=== PATIENT | male | born 1960 | race African-American/Black ===

== ENCOUNTER 2019-12-14 14:39 | Emergency (ER) | payer OTHER, MEDICAID ==
[~2019-12-14] VITALS: Ht 170.2 cm; Wt 59.0 kg
[~2019-12-14 14:39] MED LIST: LOSA50TA57 PO
[2019-12-14 14:49] VITALS: BP 117/66
--- NOTE | 2019-12-14 15:31 | NUR ---
59 YR MALE W CEREBRAL PALSY BIB SISTER FROM HOME C/O GENERALIZED WEAKNESS, DECREASED APPETITE, FEVER, AND DYSURIA SINCE SATURDAY. TEMP AT BEDSIDE 98.4 PMH- HYDROCEPHALUS, CEREBAL PALSY, DM
[2019-12-14 15:56] LABS: BASOPHILS % (AUTO) 0.4 % (0.0-2.0); EOSINOPHILS % (AUTO) 0.2 % (0.0-4.0); HEMATOCRIT 41.2 % (36-52); HEMOGLOBIN 13.3 g/dL (12.0-18.0); LYMPHOCYTES # (AUTO) 0.7 K/uL (2.0-11.5); LYMPHOCYTES % (AUTO) 5.1 % (20.5-51.1); MEAN CORPUSCULAR HEMOGLOBIN 27 pg (27-31); MEAN CORPUSCULAR HGB CONC 32 g/dL (33-37); MEAN CORPUSCULAR VOLUME 82.2 fL (80-94); MONOCYTES # (AUTO) 1.3 K/uL (0.8-1.0); MONOCYTES % (AUTO) 10.4 % (1.7-9.3); NEUTROPHILS # (AUTO) 10.8 K/uL (1.8-7.7); NEUTROPHILS % (AUTO) 83.9 % (42.2-75.2); PLATELET COUNT (AUTO) 358 K/uL (140-450); RED BLOOD CELL COUNT(AUTO) 5.01 MIL/uL (4.20-6.10); WHITE BLOOD COUNT (AUTO) 12.9 K/uL (4.8-10.8)
[2019-12-14 16:14] LABS: ANION GAP 12.5 (8-16); CARBON DIOXIDE 29.7 mmol/L (21-32); CREATININE 1.2 mg/dL (0.6-1.3); POTASSIUM 3.2 mmol/L (3.5-5.1)
--- NOTE | 2019-12-14 17:10 | NUR ---
# 14 FR Urinary catheter inserted utilizing sterile technique. Immediate return of CLOUDY YELLOW] 80ML urine noted. Urine sample collected and sent to lab. Pt tolerated procedure WELL.
--- NOTE | 2019-12-14 17:12 | NUR ---
UA SENT TO LAB
[2019-12-14 17:29] LABS: APPEARANCE,URINE CLOUDY (CLEAR); BILIRUBIN,URINE NEGATIVE (NEGATIVE); BLOOD, URINE 2+ (NEGATIVE); COLOR,URINE YELLOW (YELLOW); LEUKOCYTE ESTERASE ,URINE 1+ (NEGATIVE); NITRITE, URINE POSITIVE (NEGATIVE); PH,URINE 7.5 (5.0-9.0); UGLUCOSE NEGATIVE (NEGATIVE)
--- NOTE | 2019-12-14 17:33 | NUR ---
Patient discharged with v/s stable. Written and verbal after care instructions given and explained. Patient alert, oriented and verbalized understanding of instructions. Wheel Chair Assisted with by caregiver. All questions addressed prior to discharge. ID band removed. Patient advised to follow up with PMD. Rx of Ciprofloxacin given. Patient educated on indication of medication including possible reaction and side effects. Opportunity to ask questions provided and answered.
[2019-12-14 17:34] VITALS: BP 106/63
== END 2019-12-14 17:33 | disposition home or self-care (01) ==
LOC: MED 14:39
DX: N39.0 Urinary tract infection, site not specified (principal); N12 Tubulo-interstitial nephritis, not specified as acute or chronic; E11.9 Type 2 diabetes mellitus without complications; Z79.899 Other long term (current) drug therapy
CPT/HCPCS: 36415; 71045; 80048; 81001; 82948; 85025; 87086; 87186; 99284; C1758; Q0092

== ENCOUNTER 2022-10-21 22:13 | Emergency (ER) | payer OTHER, MEDICAID ==
[~2022-10-21] VITALS: Ht 180.3 cm; Wt 74.8 kg
[2022-10-21 22:13] VITALS: BP 130/80
--- NOTE | 2022-10-21 22:15 | NUR ---
PT SIPKE BLS. TAKEN TO BED 5
--- NOTE | 2022-10-21 22:15 | NUR ---
pt is non verbal, response only to the pain came in with g tube malfunction and nausea and vomitting. pt is bed bound.
--- NOTE | 2022-10-21 22:29 | NUR ---
Dr. Flores examining patient.
[2022-10-21 23:09] LABS: BASOPHILS % (AUTO) 0.3 % (0.0-2.0); EOSINOPHILS # (AUTO) 0.2 K/uL (0-0.4); EOSINOPHILS % (AUTO) 3.3 % (0.0-4.0); HEMATOCRIT 48.9 % (36-52); HEMOGLOBIN 15.9 g/dL (12.0-18.0); LYMPHOCYTES # (AUTO) 1.2 K/uL (2.0-11.5); LYMPHOCYTES % (AUTO) 17.3 % (20.5-51.1); MEAN CORPUSCULAR HEMOGLOBIN 27 pg (27-31); MEAN CORPUSCULAR HGB CONC 33 g/dL (33-37); MEAN CORPUSCULAR VOLUME 84.3 fL (80-94); MONOCYTES # (AUTO) 0.7 K/uL (0.8-1.0); MONOCYTES % (AUTO) 10.1 % (1.7-9.3); NEUTROPHILS # (AUTO) 4.7 K/uL (1.8-7.7); PLATELET COUNT (AUTO) 172 K/uL (140-450); RED BLOOD CELL COUNT(AUTO) 5.81 MIL/uL (4.20-6.10); RED CELL DISTRIBUTION WIDTH 14.3 % (11.6-13.7); WHITE BLOOD COUNT (AUTO) 6.8 K/uL (4.8-10.8)
--- NOTE | 2022-10-21 23:15 | NUR ---
22G IV CATH PLACED L HAND LABS DRAWN AND SENT TO LAB
[2022-10-21 23:23] LABS: ALBUMIN 3.3 g/dL (3.4-5.0); ANION GAP 8.4 (8-16); POTASSIUM 4.4 mmol/L (3.5-5.1); TOTAL BILIRUBIN 0.5 mg/dL (0.0-1.0)
--- NOTE | 2022-10-21 23:24 | NUR ---
PT RETURN FROM RADIOLOGY
--- NOTE | 2022-10-21 23:45 | NUR ---
in and out catherter was placed to get urine. patient had 200 ml
--- NOTE | 2022-10-22 | NUR ---
Patient appears to be resting comfortably in bed. Vital Signs within normal limits. Respirations even and unlabored.
[2022-10-22 00:04] LABS: APPEARANCE,URINE CLOUDY (CLEAR); BILIRUBIN,URINE NEGATIVE (NEGATIVE); BLOOD, URINE 2+ (NEGATIVE); COLOR,URINE YELLOW (YELLOW); LEUKOCYTE ESTERASE ,URINE 1+ (NEGATIVE); NITRITE, URINE POSITIVE (NEGATIVE); UGLUCOSE NEGATIVE (NEGATIVE)
[2022-10-22 00:08] LABS: URINE AMORPHOUS URATE 2+ /HPF (None Seen)
[2022-10-22] MEDS ORDERED: cefTRIAXone 1,000 MG VIAL ONE (00:52)
[2022-10-22] MEDS ORDERED: CEPH250P10 GT (01:20)
--- NOTE | 2022-10-22 02:00 | NUR ---
spoke to sister to give her an update. pt has been discharge and waiting for transportation
--- NOTE | 2022-10-22 06:58 | NUR ---
Patient appears to be resting comfortably in bed. Vital Signs within normal limits. Respirations even and unlabored.
--- NOTE | 2022-10-22 07:15 | NUR ---
Note mary grace in EDM - 10/22/22 at 0718 by KARL Report and continuation of care received from TANISHA Galicia. Received patient resting in semi-fowlers position with security monitor in place. Rocephin IVPB infusing at this time.
--- NOTE | 2022-10-22 07:18 | NUR ---
Report and continuation of care received from TANISHA Galicia. Received patient resting in semi-fowlers position with sweatband perforator in place.
--- NOTE | 2022-10-22 07:50 | NUR ---
Called Ivana (sister) and status update given regarding transportation. All questions answered.
[2022-10-22 08:32] VITALS: BP 110/68
--- NOTE | 2022-10-22 08:32 | NUR ---
Patient discharged with v/s stable. Written and verbal after care instructions given and explained. Patient alert, oriented and verbalized understanding of instructions. [employer] with to car. All questions addressed prior to discharge. ID band removed. Patient advised to follow up with PMD. Rx of Keflex given. Patient educated on indication of medication including possible reaction and side effects. Opportunity to ask questions provided and answered. CT, blood work, UA results in personal belongings bag.
--- NOTE | 2022-10-22 08:32 | NUR ---
[employer] transportation at bedside.
== END 2022-10-22 08:32 | disposition home or self-care (01) ==
LOC: MED 22:13
DX: K94.23 Gastrostomy malfunction (principal); N39.0 Urinary tract infection, site not specified; E78.41 Elevated Lipoprotein(a); E11.9 Type 2 diabetes mellitus without complications; G80.9 Cerebral palsy, unspecified; R41.82 Altered mental status, unspecified; Z79.4 Long term (current) use of insulin; Z79.899 Other long term (current) drug therapy
CPT/HCPCS: 36415; 70450; 74176; 80053; 81001; 83690; 85025; 87086; 96365; 96366; 99285; J0696